=== PATIENT | male | born 1985 | race African-American/Black ===

== ENCOUNTER 2018-04-19 14:25 | Inpatient (IN) | payer OTHER ==
[2018-04-19 16:11] LABS: ADD MAN DIFF? NO
[2018-04-19 16:16] LABS: BASOPHIL # 0.1 10^3/ul (0.0-0.1); BASOPHILS % 0.6 % (0.0-2.0); EOSINOPHILS % 0.1 % (0.0-7.0); HEMATOCRIT 34.6 % (42.0-52.0); HEMOGLOBIN 12.1 g/dl (14.0-18.0); LYMPHOCYTES % 38.3 % (15.0-51.0); MEAN CORPUSCULAR VOLUME 94.3 fl (82.0-101.0); MEAN PLATELET VOLUME 11.4 fl (7.4-10.4); MONOCYTE # 0.7 10^3/ul (0.3-0.9); MONOCYTES % 9.1 % (0.0-11.0); NEUTROPHILS % 51.1 % (39.0-77.0); NUCLEATED RED BLOOD CELLS% 0.3 /100WBC (0.0-0.0); PLATELET COUNT 210 10^3/UL (140-415); POSITIVE DIFF @See below; RED BLOOD COUNT 3.67 10^6/ul (4.70-6.10); RED CELL DISTRIBUTION WIDTH 12.6 % (11.5-14.5)
[2018-04-19 16:16] LABS: WHITE BLOOD COUNT 7.8 10^3/ul (4.8-10.8)
[2018-04-19 16:33] LABS: ADD UMIC YES; UR AMORPHOUS CRYSTAL MANY /HPF (NONE SEEN); UR ASCORBIC ACID NEGATIVE (NEGATIVE); UR BACTERIA FEW /HPF (NONE SEEN); UR BILIRUBIN (Dip) NEGATIVE (NEGATIVE); UR BLOOD (Dip) 3+ mg/dL (NEGATIVE); UR CLARITY CLOUDY (CLEAR); UR COLOR RED (YELLOW); UR GLUCOSE (Dip) NEGATIVE (NEGATIVE); UR GRANULAR CAST FEW /HPF (NONE SEEN); UR KETONES (Dip) NEGATIVE (NEGATIVE); UR LEUKOCYTE ESTERASE (Dip) NEGATIVE Leu/ul (NEGATIVE); UR MUCUS FEW /HPF (NONE SEEN); UR NITRITE (Dip) NEGATIVE (NEGATIVE); UR RBC 4 /HPF (0-5); UR SPECIFIC GRAVITY (Dip) 1.028 (1.003-1.030); UR TOTAL PROTEIN (Dip) 2+ mg/dl (NEGATIVE); UR UROBILINOGEN (Dip) NEGATIVE (NEGATIVE); UR WBC 62 /HPF (0-5)
[2018-04-19] MEDS: morphine 4 MG/ML VIAL IV ×2 (16:33→17:30)
[2018-04-19] MEDS: SODIUM CHLORIDE 0.9% 1L BAG IV* (16:33)
[2018-04-19] MEDS: ONDANSETRON 4 MG INJ IV ×3 (16:33→20:31)
[2018-04-19] MEDS: ACETAMINOPHEN 500 MG TAB PO (16:34)
[2018-04-19 16:37] LABS: ALANINE AMINOTRANSFERASE 659 IU/L (13-69); ALBUMIN 5.1 g/dl (3.3-4.9); ALBUMIN/GLOBULIN RATIO 1.18; ALKALINE PHOSPHATASE 86 IU/L (42-121); AMYLASE 172 U/L (11-123); ANION GAP 14 (5-13); BLOOD UREA NITROGEN 42 mg/dl (7-20); CALCIUM 9.7 mg/dl (8.4-10.2); CARBON DIOXIDE 22 mmol/L (21-31); CHLORIDE 100 mmol/L (97-110); CREATININE 4.96 mg/dl (0.61-1.24); Estimated GFR 17 mL/min (>60); GLUCOSE 111 mg/dl (70-220); LIPASE 322 U/L (23-300); POTASSIUM 3.8 mmol/L (3.5-5.1); SODIUM 136 mmol/L (135-144); TOTAL PROTEIN 9.4 g/dl (6.1-8.1)
[2018-04-19 16:47] LABS: ASPARTATE AMINO TRANSFERASE 1090 IU/L (15-46)
[2018-04-19 16:48] LABS: BILIRUBIN,TOTAL 2.9 mg/dl (0.2-1.3)
[2018-04-19 16:49] LABS: TROPONIN-I 0.057 ng/ml (0.000-0.120)
[2018-04-19 16:50] LABS: CK-MB 4.05 ng/ml (0.0-2.4)
[2018-04-19 17:07] LABS: INR 1.01; PROTIME 13.4 Sec (11.9-14.9)
[2018-04-19 17:08] LABS: PARTIAL THROMBOPLASTIN TIME 34.4 Sec (23.0-35.0)
[2018-04-19 17:29] LABS: CREATINE KINASE 8480 IU/L (23-200)
[2018-04-19 17:39] LABS: ETHANOL < 10.0 mg/dl (0-0)
[2018-04-19 17:54] LABS: SALICYLATE < 1.0 mg/dl (5.0-30.0)
[2018-04-19 17:54] LABS: ACETAMINOPHEN < 10.0 ug/ml (10.0-30.0)
[2018-04-19 18:13] LABS: AMPHETAMINE/METHAMPHETAMINE NEGATIVE (NEGATIVE); BARBITURATES NEGATIVE (NEGATIVE); BENZODIAZEPINES NEGATIVE (NEGATIVE); CANNABINOIDS NEGATIVE (NEGATIVE); COCAINE NEGATIVE (NEGATIVE); OPIATES NEGATIVE (NEGATIVE)
[2018-04-19] MEDS: CEFTRIAXONE 1 GM/50 ML (PMX) 50 ML IVPB (18:15)
[2018-04-19 18:32] LABS: ANISOCYTOSIS 1+ (0-0); BAND NEUTROPHILS #M 0.2 10^3/ul (0.0-0.6); BAND NEUTROPHILS % (M) 3 % (0-4); BURR CELLS 2+ (0-0); ERYTHROBLAST% (NRBC) (M) 1 % (0-0); GIANT THROMBO% (M) 3 % (0-0); LYMPHOCYTES #M 1.7 10^3/ul (0.8-2.9); LYMPHOCYTES % (M) 23 % (15-51); MONOCYTE #M 0.5 10^3/ul (0.3-0.9); MONOCYTES % (M) 7 % (0-11); OVALOCYTES 1+ (0-0); PLASMAC%(M) 1 % (0); PLATELET ESTIMATE NORMAL; POIKILOCYTOSIS 2+ (0-0); REACTIVE LYMPHOCYTES #M 1.2 10^3/ul (0.0-0.0); REACTIVE LYMPHOCYTES% (M) 16 % (0-0); SEG NEUT #M 3.9 10^3/ul (1.6-7.5); SEGMENTED NEUTROPHILS (M) % 50 % (39-77); SMUDGE%M 11 % (0-0)
[2018-04-19] MEDS ORDERED: NACL 0.9% 3 ML SYG IV (19:30)
[2018-04-19] MEDS: SOD CHLORIDE 0.9% 1,000 ML IV (20:30)
[2018-04-19] MEDS: HYDROmorphONE 1 MG/ML SYG IV (20:30)
[2018-04-19] MEDS: DIPHENHYDRAMINE 50 MG CAP PO (22:28)
[2018-04-20] MEDS: ACETAMINOPHEN 325 MG TAB PO ×5 (00:52→23:10)
[2018-04-20] MEDS: SOD CHLORIDE 0.9% 1,000 ML IV ×2 (00:52→05:03)
[2018-04-20] MEDS: HYDROCODONE/APAP (5/325) TAB PO ×3 (00:56→22:11)
[2018-04-20 03:54] LABS: LACTIC ACID 0.9 mmol/L (0.5-2.0)
[2018-04-20 03:57] LABS: HEMOGLOBIN A1C 4.5 % (0-5.9)
[2018-04-20 04:36] LABS: ALANINE AMINOTRANSFERASE 502 IU/L (13-69); ALBUMIN 3.6 g/dl (3.3-4.9); ALBUMIN/GLOBULIN RATIO 1.12; ALKALINE PHOSPHATASE 55 IU/L (42-121); ANION GAP 13 (5-13); BILIRUBIN,INDIRECT 0.8 mg/dl (0-1.1); BILIRUBIN,TOTAL 2.5 mg/dl (0.2-1.3); BLOOD UREA NITROGEN 50 mg/dl (7-20); CALCIUM 8.3 mg/dl (8.4-10.2); CARBON DIOXIDE 17 mmol/L (21-31); CHLORIDE 112 mmol/L (97-110); CREATININE 6.87 mg/dl (0.61-1.24); Estimated GFR 11 mL/min (>60); GLUCOSE 118 mg/dl (70-220); MAGNESIUM 1.6 mg/dl (1.7-2.5); PHOSPHORUS 4.1 mg/dl (2.5-4.9); POTASSIUM 4.3 mmol/L (3.5-5.1); SODIUM 142 mmol/L (135-144); TOTAL PROTEIN 6.8 g/dl (6.1-8.1)
[2018-04-20 04:56] LABS: ASPARTATE AMINO TRANSFERASE 779 IU/L (15-46)
[2018-04-20 04:56] LABS: CREATINE KINASE 6196 IU/L (23-200)
[2018-04-20] MEDS: DIPHENHYDRAMINE 50 MG CAP PO (05:02)
[2018-04-20 06:00] LABS: WHITE BLOOD COUNT 8.7 10^3/ul (4.8-10.8)
[2018-04-20 06:00] LABS: HEMOGLOBIN 8.9 g/dl (14.0-18.0); MEAN CORPUSCULAR HEMOGLOBIN 34.2 pg (29.0-33.0); MEAN CORPUSCULAR HGB CONC 34.2 g/dl (32.0-37.0); MEAN PLATELET VOLUME 11.2 fl (7.4-10.4); NUCLEATED RED BLOOD CELLS% 0.3 /100WBC (0.0-0.0); PLATELET COUNT 203 10^3/UL (140-415); POSITIVE DIFF @See below; RED CELL DISTRIBUTION WIDTH 13.4 % (11.5-14.5)
[2018-04-20 06:02] LABS: ADD MAN DIFF? YES
[2018-04-20 06:42] LABS: ADD UMIC YES; UR AMORPHOUS CRYSTAL MANY /HPF (NONE SEEN); UR ASCORBIC ACID NEGATIVE (NEGATIVE); UR BILIRUBIN (Dip) NEGATIVE (NEGATIVE); UR BLOOD (Dip) 3+ mg/dL (NEGATIVE); UR CLARITY CLOUDY (CLEAR); UR COLOR AMBER (YELLOW); UR GLUCOSE (Dip) NEGATIVE (NEGATIVE); UR KETONES (Dip) TRACE mg/dL (NEGATIVE); UR LEUKOCYTE ESTERASE (Dip) NEGATIVE Leu/ul (NEGATIVE); UR NITRITE (Dip) NEGATIVE (NEGATIVE); UR RBC 2 /HPF (0-5); UR SPECIFIC GRAVITY (Dip) 1.018 (1.003-1.030); UR TOTAL PROTEIN (Dip) 3+ mg/dl (NEGATIVE); UR UROBILINOGEN (Dip) NEGATIVE (NEGATIVE); UR WBC 0 /HPF (0-5)
[2018-04-20 06:44] LABS: ANISOCYTOSIS 2+ (0-0); BAND NEUTROPHILS #M 1.4 10^3/ul (0.0-0.6); BAND NEUTROPHILS % (M) 17 % (0-4); BURR CELLS 3+ (0-0); EOSINOPHILS % (M) 1 % (0-7); ERYTHROBLAST% (NRBC) (M) 1 % (0-0); GIANT THROMBO% (M) 7 % (0-0); LYMPHOCYTES #M 1.9 10^3/ul (0.8-2.9); LYMPHOCYTES % (M) 22 % (15-51); MONOCYTE #M 0.8 10^3/ul (0.3-0.9); MONOCYTES % (M) 10 % (0-11); PLATELET ESTIMATE NORMAL; POIKILOCYTOSIS 3+ (0-0); REACTIVE LYMPHOCYTES #M 1.1 10^3/ul (0.0-0.0); REACTIVE LYMPHOCYTES% (M) 13 % (0-0); SEG NEUT #M 3.3 10^3/ul (1.6-7.5); SEGMENTED NEUTROPHILS (M) % 37 % (39-77); SMUDGE%M 18 % (0-0)
[2018-04-20] MEDS: MAGNESIUM SULFATE 2 GM/50 ML 50 ML IVPB (09:45)
[2018-04-20 10:09] LABS: IRON 74 ug/dl (35-150)
[2018-04-20 10:18] LABS: % IRON SATURATION 32 % SAT (22-52); TOTAL IRON BINDING CAPACITY 230 ug/dl (241-421)
[2018-04-20] MEDS: SODIUM BICARBONATE (IV ADD) 100 MEQ in DEXTROSE 5% 900 ML IV (10:51)
[2018-04-20 11:54] LABS: ADD MAN DIFF? NO
[2018-04-20 11:57] LABS: BASOPHILS % 0.4 % (0.0-2.0); EOSINOPHILS % 0.2 % (0.0-7.0); HEMATOCRIT 24.3 % (42.0-52.0); HEMOGLOBIN 8.4 g/dl (14.0-18.0); LYMPHOCYTES # 3.9 10^3/ul (0.8-2.9); MEAN CORPUSCULAR HGB CONC 34.6 g/dl (32.0-37.0); MEAN CORPUSCULAR VOLUME 101.3 fl (82.0-101.0); MEAN PLATELET VOLUME 10.6 fl (7.4-10.4); MONOCYTES % 10.3 % (0.0-11.0); NEUTROPHIL # 4.9 10^3/ul (1.6-7.5); NEUTROPHILS % 49.1 % (39.0-77.0); NUCLEATED RED BLOOD CELLS # 0.1 10^3/ul (0.0-0.0); NUCLEATED RED BLOOD CELLS% 0.5 /100WBC (0.0-0.0); PLATELET COUNT 189 10^3/UL (140-415); POSITIVE DIFF @See below; RED CELL DISTRIBUTION WIDTH 13.6 % (11.5-14.5)
[2018-04-20 13:44] LABS: FERRITIN > 10000.0 ng/ml (17.9-464.0)
[2018-04-20] MEDS: CEFTRIAXONE 1 GM/50 ML (PMX) 50 ML IVPB (16:14)
[2018-04-20] MEDS ORDERED: VANCOMYCIN IV PER PHARMACY XX (23:00)
[2018-04-20] MEDS: SOD CHLORIDE 0.9% 500 ML IV (23:20)
[2018-04-20 23:33] LABS: LACTIC ACID 1.4 mmol/L (0.5-2.0)
[2018-04-21] MEDS: VANCOMYCIN HCL 1.5 GM in SOD CHLORIDE 0.9% 250 ML IVPB (00:04)
[2018-04-21] MEDS: SODIUM BICARBONATE (IV ADD) 100 MEQ in DEXTROSE 5% 900 ML IV ×2 (02:14→06:30)
[2018-04-21] MEDS: PIPER-TAZO 2.25 GM (PMX) 50 ML IVPB ×3 (05:44→22:39)
[2018-04-21 06:31] LABS: PHOSPHORUS 3.9 mg/dl (2.5-4.9)
[2018-04-21 07:06] LABS: ALANINE AMINOTRANSFERASE 508 IU/L (13-69); ALBUMIN 3.6 g/dl (3.3-4.9); ALBUMIN/GLOBULIN RATIO 1.02; ALKALINE PHOSPHATASE 75 IU/L (42-121); ANION GAP 14 (5-13); BILIRUBIN,INDIRECT 0.6 mg/dl (0-1.1); BILIRUBIN,TOTAL 4.1 mg/dl (0.2-1.3); BLOOD UREA NITROGEN 62 mg/dl (7-20); CALCIUM 8.4 mg/dl (8.4-10.2); CARBON DIOXIDE 18 mmol/L (21-31); CHLORIDE 106 mmol/L (97-110); CREATININE 11.18 mg/dl (0.61-1.24); Estimated GFR 6 mL/min (>60); GLUCOSE 109 mg/dl (70-220); POTASSIUM 4.7 mmol/L (3.5-5.1); SODIUM 138 mmol/L (135-144); TOTAL PROTEIN 7.1 g/dl (6.1-8.1)
[2018-04-21 07:28] LABS: ABNORMAL IP MESSAGE 1; HEMATOCRIT 25.6 % (42.0-52.0); HEMOGLOBIN 8.6 g/dl (14.0-18.0); MEAN CORPUSCULAR HEMOGLOBIN 33.1 pg (29.0-33.0); MEAN CORPUSCULAR HGB CONC 33.6 g/dl (32.0-37.0); MEAN CORPUSCULAR VOLUME 98.5 fl (82.0-101.0); MEAN PLATELET VOLUME 12.1 fl (7.4-10.4); NUCLEATED RED BLOOD CELLS% 0.4 /100WBC (0.0-0.0); PLATELET COUNT 187 10^3/UL (140-415); POSITIVE DIFF @See below; RED CELL DISTRIBUTION WIDTH 14.4 % (11.5-14.5)
[2018-04-21 07:29] LABS: ADD MAN DIFF? YES; ASPARTATE AMINO TRANSFERASE 885 IU/L (15-46)
[2018-04-21] MEDS: ACETAMINOPHEN 325 MG TAB PO ×2 (07:48→21:41)
[2018-04-21 07:57] LABS: CREATINE KINASE 7469 IU/L (23-200)
[2018-04-21] MEDS ORDERED: VANCOMYCIN IV PER PHARMACY XX (08:30)
[2018-04-21 08:49] LABS: AADO2 Arterial 410.7 mmHg (7.0-24.0); Allen Test ACCEPTAB; Arterial Blood Gas Oxygen Sat 94.9 mmHG (95.0-98.0); Arterial Fraction of Oxyhgb 89.3 % (93.0-99.0); Arterial HCO3 18.4 mmol/L (22.0-26.0); Arterial MetHb 3.9 % (0.0-1.5); Arterial pCO2 31.7 mmhg (35-45); MODE MASK - SIMPLE; Site Right Radial
[2018-04-21 08:56] LABS: ANISOCYTOSIS 2+ (0-0); BAND NEUTROPHILS #M 2.2 10^3/ul (0.0-0.6); BAND NEUTROPHILS % (M) 14 % (0-4); BURR CELLS 2+ (0-0); EOSINOPHILS % (M) 1 % (0-7); GIANT THROMBO% (M) 1 % (0-0); LYMPHOCYTES #M 3.6 10^3/ul (0.8-2.9); LYMPHOCYTES % (M) 23 % (15-51); MONOCYTE #M 0.9 10^3/ul (0.3-0.9); MONOCYTES % (M) 6 % (0-11); PLATELET ESTIMATE NORMAL; POIKILOCYTOSIS 2+ (0-0); REACTIVE LYMPHOCYTES #M 3.2 10^3/ul (0.0-0.0); REACTIVE LYMPHOCYTES% (M) 20 % (0-0); SEG NEUT #M 6.1 10^3/ul (1.6-7.5); SEGMENTED NEUTROPHILS (M) % 36 % (39-77); SMUDGE%M 4 % (0-0)
[2018-04-21] MEDS ORDERED: PIPER-TAZO 3.375 GM IV (PMX) 100 ML IVPB (10:00)
[2018-04-21] MEDS ORDERED: PIPER-TAZO 2.25 GM (PMX) 50 ML IVPB (10:00)
[2018-04-21] MEDS: ALBUMIN HUMAN 25% 100 ML IV (11:32)
[2018-04-21] MEDS: ACETAMINOPHEN 1000MG/100ML IV 100 ML IVPB (11:45)
[2018-04-21] MEDS: FUROSEMIDE 40 MG INJ IV (11:47)
[2018-04-21 12:19] LABS: ADD MAN DIFF? NO
[2018-04-21 12:32] LABS: ALANINE AMINOTRANSFERASE 482 IU/L (13-69); ALBUMIN 3.6 g/dl (3.3-4.9); ALBUMIN/GLOBULIN RATIO 1.05; ALKALINE PHOSPHATASE 64 IU/L (42-121); ANION GAP 16 (5-13); ASPARTATE AMINO TRANSFERASE 714 IU/L (15-46); BILIRUBIN,INDIRECT 0.6 mg/dl (0-1.1); BILIRUBIN,TOTAL 3.9 mg/dl (0.2-1.3); BLOOD UREA NITROGEN 67 mg/dl (7-20); CALCIUM 8.3 mg/dl (8.4-10.2); CARBON DIOXIDE 21 mmol/L (21-31); CHLORIDE 101 mmol/L (97-110); CREATININE 12.09 mg/dl (0.61-1.24); Estimated GFR 6 mL/min (>60); GLUCOSE 125 mg/dl (70-220); MAGNESIUM 1.9 mg/dl (1.7-2.5); POTASSIUM 4.5 mmol/L (3.5-5.1); SODIUM 138 mmol/L (135-144)
[2018-04-21 12:43] LABS: WHITE BLOOD COUNT 18.7 10^3/ul (4.8-10.8)
[2018-04-21 12:43] LABS: ABNORMAL IP MESSAGE 1; BASOPHILS % 0.2 % (0.0-2.0); EOSINOPHILS % 0.1 % (0.0-7.0); HEMATOCRIT 22.5 % (42.0-52.0); HEMOGLOBIN 7.9 g/dl (14.0-18.0); LYMPHOCYTES # 6.8 10^3/ul (0.8-2.9); LYMPHOCYTES % 36.2 % (15.0-51.0); MEAN CORPUSCULAR HEMOGLOBIN 33.9 pg (29.0-33.0); MEAN CORPUSCULAR HGB CONC 35.1 g/dl (32.0-37.0); MEAN CORPUSCULAR VOLUME 96.6 fl (82.0-101.0); MEAN PLATELET VOLUME 11.8 fl (7.4-10.4); MONOCYTE # 1.8 10^3/ul (0.3-0.9); MONOCYTES % 9.4 % (0.0-11.0); NEUTROPHIL # 9.5 10^3/ul (1.6-7.5); NEUTROPHILS % 51.2 % (39.0-77.0); NUCLEATED RED BLOOD CELLS # 0.1 10^3/ul (0.0-0.0); NUCLEATED RED BLOOD CELLS% 0.4 /100WBC (0.0-0.0); PLATELET COUNT 215 10^3/UL (140-415); POSITIVE DIFF @See below; RED BLOOD COUNT 2.33 10^6/ul (4.70-6.10); RED CELL DISTRIBUTION WIDTH 14.5 % (11.5-14.5)
[2018-04-21 13:16] LABS: ANISOCYTOSIS 1+ (0-0); BAND NEUTROPHILS #M 2.2 10^3/ul (0.0-0.6); BAND NEUTROPHILS % (M) 12 % (0-4); BURR CELLS 1+ (0-0); EOSINOPHILS % (M) 1 % (0-7); ERYTHROBLAST% (NRBC) (M) 1 % (0-0); LYMPHOCYTES #M 4.8 10^3/ul (0.8-2.9); LYMPHOCYTES % (M) 26 % (15-51); MONOCYTE #M 1.1 10^3/ul (0.3-0.9); MONOCYTES % (M) 6 % (0-11); PLATELET ESTIMATE NORMAL; POIKILOCYTOSIS 1+ (0-0); POLYCHROMASIA 1+ (0-0); REACTIVE LYMPHOCYTES #M 2.4 10^3/ul (0.0-0.0); REACTIVE LYMPHOCYTES% (M) 13 % (0-0); SEG NEUT #M 8.3 10^3/ul (1.6-7.5); SEGMENTED NEUTROPHILS (M) % 42 % (39-77); SMUDGE%M 29 % (0-0)
[2018-04-21 13:27] LABS: CREATINE KINASE 6943 IU/L (23-200)
[2018-04-21] MEDS ORDERED: HEPARIN 1000 UNITS/ML 10 ML INJ (13:31)
[2018-04-21] MEDS: SODIUM BICARBONATE (IV ADD) 100 MEQ in DEXTROSE 5% 1,000 ML IV (14:16)
[2018-04-21] MEDS ORDERED: ALBUMIN HUMAN 25% 100 ML IV (14:30)
[2018-04-21] MEDS ORDERED: SODIUM CHLORIDE 0.9% 1L BAG IV (14:30)
[2018-04-21 14:50] LABS: Allen Test M; Arterial Base Excess -6.3 mmol/L (-3.0-3); Arterial Blood Gas Oxygen Sat 83.3 mmHG (95.0-98.0); Arterial COHb 1.5 % (0.0-3.0); Arterial Fraction of Oxyhgb 78.8 % (93.0-99.0); Arterial HCO3 18.7 mmol/L (22.0-26.0); Arterial MetHb 3.9 % (0.0-1.5); Arterial pCO2 34.9 mmhg (35-45); MODE MASK - NRB; Site Right Radial
[2018-04-21] MEDS ORDERED: PROPOFOL 0 ML (16:31)
[2018-04-21] MEDS ORDERED: PROPOFOL 100 ML (16:35)
[2018-04-21 18:24] LABS: Allen Test ACCEPTAB; Arterial Base Excess -4.5 mmol/L (-3.0-3); Arterial Blood Gas Oxygen Sat 97.4 mmHG (95.0-98.0); Arterial COHb 1.9 % (0.0-3.0); Arterial MetHb 4.7 % (0.0-1.5); Arterial pCO2 34.2 mmhg (35-45); Blood Gas IEPAP 15/5; Blood Gas PS 10; MODE MASK - BIPAP; Site Right Radial
[2018-04-21] MEDS: HYDROCODONE/APAP (5/325) TAB PO (21:39)
[2018-04-21] MEDS: HEPARIN 5,000 UNIT/1 ML VIAL SC (21:44)
[2018-04-22] MEDS: traZODone 50 MG TAB PO (01:37)
[2018-04-22 05:35] LABS: HAAIG REFLEX REFLEX FILED
[2018-04-22] MEDS: SODIUM BICARBONATE (IV ADD) 100 MEQ in DEXTROSE 5% 1,000 ML IV (05:43)
[2018-04-22] MEDS: PANTOPRAZOLE 40 MG INJ IV (05:43)
[2018-04-22] MEDS: PIPER-TAZO 2.25 GM (PMX) 50 ML IVPB (05:43)
[2018-04-22 06:01] LABS: ABNORMAL IP MESSAGE 1; HEMATOCRIT 18.7 % (42.0-52.0); MEAN CORPUSCULAR HEMOGLOBIN 36.1 pg (29.0-33.0); MEAN CORPUSCULAR HGB CONC 36.9 g/dl (32.0-37.0); MEAN CORPUSCULAR VOLUME 97.9 fl (82.0-101.0); MEAN PLATELET VOLUME 11.9 fl (7.4-10.4); NUCLEATED RED BLOOD CELLS% 0.7 /100WBC (0.0-0.0); PLATELET COUNT 233 10^3/UL (140-415); POSITIVE DIFF @See below; RED BLOOD COUNT 1.91 10^6/ul (4.70-6.10); RED CELL DISTRIBUTION WIDTH 15.2 % (11.5-14.5)
[2018-04-22 06:05] LABS: ADD MAN DIFF? YES
[2018-04-22 06:06] LABS: HEMOGLOBIN 6.9 g/dl (14.0-18.0)
[2018-04-22 06:17] LABS: ALANINE AMINOTRANSFERASE 641 IU/L (13-69); ALBUMIN 3.6 g/dl (3.3-4.9); ALBUMIN/GLOBULIN RATIO 1.02; ALKALINE PHOSPHATASE 68 IU/L (42-121); ANION GAP 14 (5-13); BILIRUBIN,INDIRECT 0.8 mg/dl (0-1.1); BILIRUBIN,TOTAL 4.4 mg/dl (0.2-1.3); BLOOD UREA NITROGEN 60 mg/dl (7-20); CALCIUM 8.3 mg/dl (8.4-10.2); CARBON DIOXIDE 27 mmol/L (21-31); CHLORIDE 98 mmol/L (97-110); CREATININE 11.34 mg/dl (0.61-1.24); Estimated GFR 6 mL/min (>60); GLUCOSE 128 mg/dl (70-220); POTASSIUM 4.4 mmol/L (3.5-5.1); SODIUM 139 mmol/L (135-144); TOTAL PROTEIN 7.1 g/dl (6.1-8.1)
[2018-04-22 06:33] LABS: ASPARTATE AMINO TRANSFERASE 1229 IU/L (15-46)
[2018-04-22 07:07] LABS: CREATINE KINASE 5993 IU/L (23-200)
[2018-04-22 07:20] LABS: HEPATITIS B SURFACE ANTIGEN NEGATIVE (NEGATIVE)
[2018-04-22 07:38] LABS: HEPATITIS B CORE ANTIBODY NEGATIVE (NEGATIVE); HEPATITIS C VIRAL ANTIBODY NEGATIVE (NEGATIVE)
[2018-04-22 07:47] LABS: HIV 1&2 ANTIBODY REACTIVE (NEGATIVE)
[2018-04-22] MEDS: ACETAMINOPHEN 650 MG SUPP PR ×2 (08:50→23:42)
[2018-04-22] MEDS ORDERED: ENOXAPARIN 40 MG/0.4 ML SYG SC (09:00)
[2018-04-22] MEDS: HEPARIN 5,000 UNIT/1 ML VIAL SC ×2 (09:02→21:58)
[2018-04-22 09:08] LABS: ANISOCYTOSIS 3+ (0-0); BAND NEUTROPHILS #M 2.7 10^3/ul (0.0-0.6); BAND NEUTROPHILS % (M) 12 % (0-4); BURR CELLS 3+ (0-0); ERYTHROBLAST% (NRBC) (M) 3 % (0-0); LYMPHOCYTES #M 4.1 10^3/ul (0.8-2.9); LYMPHOCYTES % (M) 18 % (15-51); MONOCYTE #M 3.4 10^3/ul (0.3-0.9); MONOCYTES % (M) 15 % (0-11); PLATELET ESTIMATE NORMAL; POIKILOCYTOSIS 3+ (0-0); REACTIVE LYMPHOCYTES #M 2.5 10^3/ul (0.0-0.0); REACTIVE LYMPHOCYTES% (M) 11 % (0-0); SEG NEUT #M 10.7 10^3/ul (1.6-7.5); SEGMENTED NEUTROPHILS (M) % 44 % (39-77); SMUDGE%M 43 % (0-0)
[2018-04-22] MEDS: METHYLPREDNISOLONE 125 MG INJ IV ×2 (12:49→20:01)
[2018-04-22] MEDS: LORAZEPAM 2 MG INJ IV ×2 (13:20→23:33)
[2018-04-22] MEDS: PRIMAQUINE 15 MG TAB PO ×2 (13:20→14:00)
[2018-04-22] MEDS: CLINDAMYCIN 600 MG/D5W (PMX) 50 ML IVPB ×2 (14:37→21:57)
[2018-04-22] MEDS: ACETAMINOPHEN 1000MG/100ML IV 100 ML IVPB (14:46)
[2018-04-22] MEDS: CEFEPIME 1GM/50 ML (PMX) 50 ML IVPB (14:48)
[2018-04-22] MEDS: morphine 4 MG/ML VIAL IV ×2 (14:56→20:14)
[2018-04-22 15:51] LABS: OCCULT BLOOD STOOL NEGATIVE (NEGATIVE)
[2018-04-22] MEDS: HEPARIN 1000 UNITS/ML 10 ML INJ CATHETER (19:40)
[2018-04-22] MEDS: LEVOFLOXACIN 250MG/D5W (PMX) 50 ML IVPB (20:01)
[2018-04-23] MEDS: METHYLPREDNISOLONE 125 MG INJ IV ×5 (00:37→23:06)
[2018-04-23] MEDS: CLINDAMYCIN 600 MG/D5W (PMX) 50 ML IVPB (05:29)
[2018-04-23] MEDS: PANTOPRAZOLE 40 MG INJ IV (05:29)
[2018-04-23 05:43] LABS: ALANINE AMINOTRANSFERASE 718 IU/L (13-69); ALBUMIN/GLOBULIN RATIO 0.93; ALKALINE PHOSPHATASE 77 IU/L (42-121); ANION GAP 17 (5-13); BILIRUBIN,INDIRECT 1.3 mg/dl (0-1.1); BILIRUBIN,TOTAL 4.4 mg/dl (0.2-1.3); BLOOD UREA NITROGEN 64 mg/dl (7-20); CALCIUM 8.7 mg/dl (8.4-10.2); CARBON DIOXIDE 28 mmol/L (21-31); CHLORIDE 96 mmol/L (97-110); CREATININE 10.67 mg/dl (0.61-1.24); Estimated GFR 7 mL/min (>60); GLUCOSE 157 mg/dl (70-220); POTASSIUM 5.1 mmol/L (3.5-5.1); SODIUM 141 mmol/L (135-144); TOTAL PROTEIN 8.3 g/dl (6.1-8.1)
[2018-04-23 05:45] LABS: PHOSPHORUS 5.1 mg/dl (2.5-4.9)
[2018-04-23 05:45] LABS: MAGNESIUM 2.2 mg/dl (1.7-2.5)
[2018-04-23 05:50] LABS: ASPARTATE AMINO TRANSFERASE 1148 IU/L (15-46)
[2018-04-23] MEDS: ACETAMINOPHEN 650 MG SUPP PR ×2 (07:30→11:50)
[2018-04-23 08:09] LABS: WHITE BLOOD COUNT 22.5 10^3/ul (4.8-10.8)
[2018-04-23 08:09] LABS: ABNORMAL IP MESSAGE 1; HEMATOCRIT 16.8 % (42.0-52.0); MEAN CORPUSCULAR HEMOGLOBIN 36.1 pg (29.0-33.0); MEAN CORPUSCULAR HGB CONC 35.7 g/dl (32.0-37.0); MEAN CORPUSCULAR VOLUME 101.2 fl (82.0-101.0); MEAN PLATELET VOLUME 11.5 fl (7.4-10.4); NUCLEATED RED BLOOD CELLS% 2.4 /100WBC (0.0-0.0); PLATELET COUNT 210 10^3/UL (140-415); POSITIVE DIFF @See below; RED BLOOD COUNT 1.66 10^6/ul (4.70-6.10); RED CELL DISTRIBUTION WIDTH 17.1 % (11.5-14.5)
[2018-04-23 08:18] LABS: ADD MAN DIFF? YES
[2018-04-23] MEDS: HEPARIN 5,000 UNIT/1 ML VIAL SC ×2 (09:27→21:16)
[2018-04-23] MEDS: SOD CHLORIDE 0.9% 250 ML IV* ×2 (09:27→10:31)
[2018-04-23] MEDS: PRIMAQUINE 15 MG TAB PO ×2 (09:27→09:38)
[2018-04-23 10:43] LABS: ANISOCYTOSIS 3+ (0-0); BAND NEUTROPHILS #M 0.9 10^3/ul (0.0-0.6); BAND NEUTROPHILS % (M) 4 % (0-4); BURR CELLS 1+ (0-0); GIANT THROMBO% (M) 1 % (0-0); LYMPHOCYTES #M 2.4 10^3/ul (0.8-2.9); LYMPHOCYTES % (M) 11 % (15-51); METAMYELOCYTES #M 0.2 10^3/ul (0.0-0.0); METAMYELOCYTES %M 1 % (0-0); MONOCYTE #M 1.3 10^3/ul (0.3-0.9); MONOCYTES % (M) 6 % (0-11); MYELOCYTES #M 0.4 10^3/ul (0.0-0.0); MYELOCYTES % (M) 2 % (0-0); PLATELET ESTIMATE NORMAL; POIKILOCYTOSIS 3+ (0-0); POLYCHROMASIA 3+ (0-0); REACTIVE LYMPHOCYTES #M 2.4 10^3/ul (0.0-0.0); REACTIVE LYMPHOCYTES% (M) 11 % (0-0); SEG NEUT #M 14.8 10^3/ul (1.6-7.5); SEGMENTED NEUTROPHILS (M) % 65 % (39-77); SMUDGE%M 28 % (0-0); SPHEROCYTES 1+ (0-0); TARGET CELLS 1+ (0-0)
[2018-04-23] MEDS: INFLUENZA VIRUS VACCINE 0.5 ML (DISPENSING) IM* (11:45)
[2018-04-23] MEDS: HEPARIN 1000 UNITS/ML 10 ML INJ CATHETER (12:15)
[2018-04-23 12:32] LABS: AADO2 Arterial 349.9 mmHg (7.0-24.0); Allen Test ACCEPTAB; Arterial Base Excess 2.1 mmol/L (-3.0-3); Arterial Blood Gas Oxygen Sat 99.6 mmHG (95.0-98.0); Arterial COHb 2.5 % (0.0-3.0); Arterial Fraction of Oxyhgb 92.2 % (93.0-99.0); Arterial HCO3 26.2 mmol/L (22.0-26.0); Arterial MetHb 4.9 % (0.0-1.5); Arterial pCO2 38.8 mmhg (35-45); Blood Gas IEPAP 15/5; Blood Gas PS 10; MODE MASK - BIPAP; Site Right Radial
[2018-04-23] MEDS: TRIMETHOPRIM/SULFAMETHOXAZOLE 25 ML in DEXTROSE 5% 500 ML IVPB (13:02)
[2018-04-23] MEDS: CEFEPIME 1GM/50 ML (PMX) 50 ML IVPB (15:26)
[2018-04-23] MEDS: LORAZEPAM 2 MG INJ IV (23:07)
[2018-04-24 04:58] LABS: ADD MAN DIFF? NO
[2018-04-24 05:08] LABS: ABNORMAL IP MESSAGE 1; HEMATOCRIT 14.5 % (42.0-52.0); MEAN CORPUSCULAR VOLUME 98.6 fl (82.0-101.0); MEAN PLATELET VOLUME 12.1 fl (7.4-10.4); NUCLEATED RED BLOOD CELLS% 7.5 /100WBC (0.0-0.0); PLATELET COUNT 374 10^3/UL (140-415); POSITIVE DIFF @See below; RED BLOOD COUNT 1.47 10^6/ul (4.70-6.10); RED CELL DISTRIBUTION WIDTH 21.5 % (11.5-14.5)
[2018-04-24 05:08] LABS: WHITE BLOOD COUNT 17.9 10^3/ul (4.8-10.8)
[2018-04-24 05:30] LABS: ALANINE AMINOTRANSFERASE 507 IU/L (13-69); ALBUMIN 3.9 g/dl (3.3-4.9); ALBUMIN/GLOBULIN RATIO 0.95; ALKALINE PHOSPHATASE 85 IU/L (42-121); ANION GAP 13 (5-13); ASPARTATE AMINO TRANSFERASE 547 IU/L (15-46); BILIRUBIN,INDIRECT 1.1 mg/dl (0-1.1); BILIRUBIN,TOTAL 3.2 mg/dl (0.2-1.3); BLOOD UREA NITROGEN 85 mg/dl (7-20); CARBON DIOXIDE 27 mmol/L (21-31); CHLORIDE 99 mmol/L (97-110); CREATININE 10.04 mg/dl (0.61-1.24); Estimated GFR 7 mL/min (>60); GLUCOSE 176 mg/dl (70-220); POTASSIUM 4.6 mmol/L (3.5-5.1); SODIUM 139 mmol/L (135-144)
[2018-04-24] MEDS: PANTOPRAZOLE 40 MG INJ IV (05:31)
[2018-04-24] MEDS: METHYLPREDNISOLONE 125 MG INJ IV ×4 (05:31→23:22)
[2018-04-24 06:42] LABS: MEAN CORPUSCULAR HEMOGLOBIN 46.9 pg (29.0-33.0); MEAN CORPUSCULAR HGB CONC 47.6 g/dl (32.0-37.0)
[2018-04-24 06:45] LABS: HEMOGLOBIN 6.9 g/dl (14.0-18.0)
[2018-04-24] MEDS: HEPARIN 5,000 UNIT/1 ML VIAL SC ×2 (08:29→20:23)
[2018-04-24 09:37] LABS: CREATINE KINASE 3172 IU/L (23-200)
[2018-04-24 09:56] LABS: ANISOCYTOSIS 3+ (0-0); BAND NEUTROPHILS #M 1.2 10^3/ul (0.0-0.6); BAND NEUTROPHILS % (M) 7 % (0-4); BURR CELLS 2+ (0-0); ERYTHROBLAST% (NRBC) (M) 11 % (0-0); GIANT THROMBO% (M) 1 % (0-0); LYMPHOCYTES #M 1.4 10^3/ul (0.8-2.9); LYMPHOCYTES % (M) 8 % (15-51); MONOCYTE #M 1.7 10^3/ul (0.3-0.9); MONOCYTES % (M) 10 % (0-11); MYELOCYTES #M 0.3 10^3/ul (0.0-0.0); MYELOCYTES % (M) 2 % (0-0); OVALOCYTES 2+ (0-0); PLATELET ESTIMATE NORMAL; POIKILOCYTOSIS 3+ (0-0); POLYCHROMASIA 3+ (0-0); PROMYELOCYTES #M 0.1 10^3/ul (0-0); PROMYELOCYTES % (M) 1 % (0-0); REACTIVE LYMPHOCYTES% (M) 6 % (0-0); SEG NEUT #M 11.3 10^3/ul (1.6-7.5); SEGMENTED NEUTROPHILS (M) % 62 % (39-77); SMUDGE%M 7 % (0-0)
[2018-04-24] MEDS: ACETAMINOPHEN 650 MG SUPP PR (11:01)
[2018-04-24] MEDS: TRIMETHOPRIM/SULFAMETHOXAZOLE 25 ML in DEXTROSE 5% 500 ML IVPB (11:11)
[2018-04-24 11:19] LABS: IMMEDIATE SPIN CROSSMATCH 1 1
[2018-04-24] MEDS: CEFEPIME 1GM/50 ML (PMX) 50 ML IVPB (15:00)
[2018-04-24] MEDS: LORAZEPAM 2 MG INJ IV (19:54)
[2018-04-25] MEDS: PANTOPRAZOLE 40 MG INJ IV (06:10)
[2018-04-25] MEDS: METHYLPREDNISOLONE 125 MG INJ IV ×4 (06:11→23:18)
[2018-04-25 06:47] LABS: ALANINE AMINOTRANSFERASE 357 IU/L (13-69); ALBUMIN 3.7 g/dl (3.3-4.9); ALBUMIN/GLOBULIN RATIO 0.94; ALKALINE PHOSPHATASE 80 IU/L (42-121); ANION GAP 19 (5-13); ASPARTATE AMINO TRANSFERASE 272 IU/L (15-46); BILIRUBIN,INDIRECT 0.7 mg/dl (0-1.1); BILIRUBIN,TOTAL 2.4 mg/dl (0.2-1.3); CARBON DIOXIDE 21 mmol/L (21-31); CHLORIDE 98 mmol/L (97-110); Estimated GFR 5 mL/min (>60); GLUCOSE 218 mg/dl (70-220); POTASSIUM 4.3 mmol/L (3.5-5.1); SODIUM 138 mmol/L (135-144); TOTAL PROTEIN 7.6 g/dl (6.1-8.1)
[2018-04-25 06:52] LABS: PHOSPHORUS 5.2 mg/dl (2.5-4.9)
[2018-04-25 06:52] LABS: MAGNESIUM 3.1 mg/dl (1.7-2.5)
[2018-04-25 06:58] LABS: BLOOD UREA NITROGEN 129 mg/dl (7-20)
[2018-04-25 06:59] LABS: ABNORMAL IP MESSAGE 1; MEAN CORPUSCULAR HEMOGLOBIN 31.8 pg (29.0-33.0); MEAN CORPUSCULAR HGB CONC 34.7 g/dl (32.0-37.0); MEAN CORPUSCULAR VOLUME 91.5 fl (82.0-101.0); PLATELET COUNT 323 10^3/UL (140-415); POSITIVE DIFF @See below; RED BLOOD COUNT 2.11 10^6/ul (4.70-6.10); RED CELL DISTRIBUTION WIDTH 16.7 % (11.5-14.5)
[2018-04-25 06:59] LABS: WHITE BLOOD COUNT 16.1 10^3/ul (4.8-10.8)
[2018-04-25 07:04] LABS: HEMOGLOBIN 6.7 g/dl (14.0-18.0)
[2018-04-25 07:05] LABS: ADD MAN DIFF? YES
[2018-04-25 07:13] LABS: HEMATOCRIT 19.3 % (42.0-52.0)
[2018-04-25 07:28] LABS: CREATINE KINASE 2778 IU/L (23-200)
[2018-04-25] MEDS: SOD CHLORIDE 0.9% 250 ML IV* (09:34)
[2018-04-25 10:47] LABS: ANISOCYTOSIS 3+ (0-0); BAND NEUTROPHILS #M 0.6 10^3/ul (0.0-0.6); BAND NEUTROPHILS % (M) 4 % (0-4); BURR CELLS 3+ (0-0); ERYTHROBLAST% (NRBC) (M) 8 % (0-0); GIANT THROMBO% (M) 5 % (0-0); LYMPHOCYTES #M 3.5 10^3/ul (0.8-2.9); LYMPHOCYTES % (M) 22 % (15-51); MICROCYTOSIS 2+ (0-0); MONOCYTE #M 0.8 10^3/ul (0.3-0.9); MONOCYTES % (M) 5 % (0-11); MYELOCYTES #M 0.3 10^3/ul (0.0-0.0); MYELOCYTES % (M) 2 % (0-0); PLATELET ESTIMATE NORMAL; POIKILOCYTOSIS 3+ (0-0); POLYCHROMASIA 3+ (0-0); PROMYELOCYTES #M 0.1 10^3/ul (0-0); PROMYELOCYTES % (M) 1 % (0-0); REACTIVE LYMPHOCYTES #M 0.6 10^3/ul (0.0-0.0); REACTIVE LYMPHOCYTES% (M) 4 % (0-0); SEG NEUT #M 10.4 10^3/ul (1.6-7.5); SEGMENTED NEUTROPHILS (M) % 64 % (39-77); SMUDGE%M 12 % (0-0); TARGET CELLS 1+ (0-0)
[2018-04-25] MEDS ORDERED: morphine 4 MG/ML VIAL IV (11:00)
[2018-04-25] MEDS: TRIMETHOPRIM/SULFAMETHOXAZOLE 25 ML in DEXTROSE 5% 500 ML IVPB (13:11)
[2018-04-25] MEDS: CEFEPIME 1GM/50 ML (PMX) 50 ML IVPB (16:59)
[2018-04-25] MEDS: LORAZEPAM 2 MG INJ IV (21:52)
[2018-04-26] MEDS: PANTOPRAZOLE 40 MG INJ IV (06:08)
[2018-04-26] MEDS: METHYLPREDNISOLONE 125 MG INJ IV (06:09)
[2018-04-26 06:15] LABS: ADD MAN DIFF? NO
[2018-04-26 06:37] LABS: ALANINE AMINOTRANSFERASE 301 IU/L (13-69); ALBUMIN 3.6 g/dl (3.3-4.9); ALKALINE PHOSPHATASE 69 IU/L (42-121); ASPARTATE AMINO TRANSFERASE 160 IU/L (15-46); BILIRUBIN,INDIRECT 0.8 mg/dl (0-1.1); BILIRUBIN,TOTAL 1.9 mg/dl (0.2-1.3); TOTAL PROTEIN 7.3 g/dl (6.1-8.1)
[2018-04-26 06:40] LABS: ANION GAP 17 (5-13); BLOOD UREA NITROGEN 115 mg/dl (7-20); CALCIUM 9.1 mg/dl (8.4-10.2); CARBON DIOXIDE 24 mmol/L (21-31); CHLORIDE 97 mmol/L (97-110); CREATININE 11.81 mg/dl (0.61-1.24); Estimated GFR 6 mL/min (>60); GLUCOSE 205 mg/dl (70-220); POTASSIUM 4.3 mmol/L (3.5-5.1); SODIUM 138 mmol/L (135-144)
[2018-04-26 06:45] LABS: CREATINE KINASE 2342 IU/L (23-200)
[2018-04-26 07:26] LABS: WHITE BLOOD COUNT 12.9 10^3/ul (4.8-10.8)
[2018-04-26 07:26] LABS: BASOPHILS % 0.2 % (0.0-2.0); HEMATOCRIT 20.8 % (42.0-52.0); HEMOGLOBIN 7.1 g/dl (14.0-18.0); LYMPHOCYTES # 2.9 10^3/ul (0.8-2.9); LYMPHOCYTES % 22.9 % (15.0-51.0); MEAN CORPUSCULAR HEMOGLOBIN 30.6 pg (29.0-33.0); MEAN CORPUSCULAR HGB CONC 34.1 g/dl (32.0-37.0); MEAN CORPUSCULAR VOLUME 89.7 fl (82.0-101.0); MEAN PLATELET VOLUME 11.9 fl (7.4-10.4); MONOCYTE # 0.7 10^3/ul (0.3-0.9); MONOCYTES % 5.1 % (0.0-11.0); NEUTROPHIL # 8.9 10^3/ul (1.6-7.5); NEUTROPHILS % 68.9 % (39.0-77.0); NUCLEATED RED BLOOD CELLS # 1.1 10^3/ul (0.0-0.0); NUCLEATED RED BLOOD CELLS% 8.2 /100WBC (0.0-0.0); PLATELET COUNT 326 10^3/UL (140-415); POSITIVE DIFF @See below; RED BLOOD COUNT 2.32 10^6/ul (4.70-6.10); RED CELL DISTRIBUTION WIDTH 18.8 % (11.5-14.5)
[2018-04-26] MEDS: HYDROCODONE/APAP (5/325) TAB PO (09:57)
[2018-04-26 10:02] LABS: ANISOCYTOSIS 3+ (0-0); BAND NEUTROPHILS #M 0.7 10^3/ul (0.0-0.6); BAND NEUTROPHILS % (M) 6 % (0-4); BASOPHIL #M 0.1 10^3/ul (0.0-0.0); BASOPHILS % (M) 1 % (0-2); BURR CELLS 1+ (0-0); ERYTHROBLAST% (NRBC) (M) 2 % (0-0); GIANT THROMBO% (M) 1 % (0-0); LYMPHOCYTES #M 1.9 10^3/ul (0.8-2.9); LYMPHOCYTES % (M) 15 % (15-51); MONOCYTE #M 1.2 10^3/ul (0.3-0.9); MONOCYTES % (M) 10 % (0-11); MYELOCYTES #M 0.1 10^3/ul (0.0-0.0); MYELOCYTES % (M) 1 % (0-0); OVALOCYTES 1+ (0-0); PLATELET ESTIMATE NORMAL; POIKILOCYTOSIS 2+ (0-0); POLYCHROMASIA 3+ (0-0); REACTIVE LYMPHOCYTES #M 0.9 10^3/ul (0.0-0.0); REACTIVE LYMPHOCYTES% (M) 7 % (0-0); SEG NEUT #M 7.8 10^3/ul (1.6-7.5); SEGMENTED NEUTROPHILS (M) % 60 % (39-77); SMUDGE%M 12 % (0-0)
[2018-04-26] MEDS: TRIMETHOPRIM/SULFAMETHOXAZOLE 25 ML in DEXTROSE 5% 500 ML IVPB (12:27)
[2018-04-26] MEDS: METHYLPREDNISOLONE 40 MG INJ IV ×3 (12:27→23:21)
[2018-04-26] MEDS: CEFEPIME 1GM/50 ML (PMX) 50 ML IVPB (15:09)
[2018-04-26] MEDS: ONDANSETRON 4 MG INJ IV (23:37)
[2018-04-27 00:58] LABS: COLLECTION PERIOD 24 hrs
[2018-04-27 02:54] LABS: COLLECTION PERIOD 24 hrs; CREATININE,URINE RANDOM 34.56 mg/dl (20-370); SCRET 11.81 mg/dl (0.61-1.24); VOLUME 20 ml/24hrs
[2018-04-27 04:29] LABS: VOLUME 20 mls
[2018-04-27] MEDS: PANTOPRAZOLE 40 MG INJ IV (05:46)
[2018-04-27] MEDS: METHYLPREDNISOLONE 40 MG INJ IV ×2 (05:46→11:27)
[2018-04-27 06:37] LABS: CREATINE KINASE 1243 IU/L (23-200)
[2018-04-27 06:38] LABS: PHOSPHORUS 8.9 mg/dl (2.5-4.9)
[2018-04-27] MEDS: HEPARIN 1000 UNITS/ML 10 ML INJ CATHETER (11:08)
[2018-04-27] MEDS: TRIMETHOPRIM/SULFAMETHOXAZOLE 25 ML in DEXTROSE 5% 500 ML IVPB (11:27)
[2018-04-27 11:36] LABS: LYMPHOCYTE - % CD4 (HELPER) 10 % (30-61); LYMPHOCYTE - % CD4 (HELPER) 9 % (30-61); LYMPHOCYTE - %CD8 (SUPPRESSOR) 57 % (12-42); LYMPHOCYTE - %CD8 (SUPPRESSOR) 63 % (12-42); LYMPHOCYTE - ABSOLUTE 2536 cells/uL (850-3900); LYMPHOCYTE - ABSOLUTE 3348 cells/uL (850-3900); LYMPHOCYTE - ABSOLUTE CD4 223 cells/uL (490-1740); LYMPHOCYTE - ABSOLUTE CD4 344 cells/uL (490-1740); LYMPHOCYTE - ABSOLUTE CD8 1594 cells/uL (180-1170); LYMPHOCYTE - ABSOLUTE CD8 1910 cells/uL (180-1170); LYMPHOCYTE - CD4/CD8 RATIO 0.14 (0.86-5.00); LYMPHOCYTE - CD4/CD8 RATIO 0.18 (0.86-5.00)
[2018-04-27] MEDS: DIPHENHYDRAMINE 50 MG CAP PO (13:16)
[2018-04-27] MEDS: CEFEPIME 1GM/50 ML (PMX) 50 ML IVPB (15:13)
[2018-04-27 15:16] LABS: ADD MAN DIFF? NO
[2018-04-27 15:52] LABS: ANION GAP 18 (5-13); BLOOD UREA NITROGEN 90 mg/dl (7-20); CALCIUM 8.6 mg/dl (8.4-10.2); CARBON DIOXIDE 23 mmol/L (21-31); CHLORIDE 93 mmol/L (97-110); CREATININE 10.15 mg/dl (0.61-1.24); Estimated GFR 7 mL/min (>60); GLUCOSE 223 mg/dl (70-220); POTASSIUM 3.9 mmol/L (3.5-5.1); SODIUM 134 mmol/L (135-144)
[2018-04-27] MEDS: ONDANSETRON 4 MG INJ IV (16:12)
[2018-04-27 16:15] LABS: WHITE BLOOD COUNT 10.7 10^3/ul (4.8-10.8)
[2018-04-27 16:15] LABS: BASOPHILS % 0.1 % (0.0-2.0); HEMATOCRIT 20.7 % (42.0-52.0); LYMPHOCYTES # 1.3 10^3/ul (0.8-2.9); LYMPHOCYTES % 12.2 % (15.0-51.0); MEAN CORPUSCULAR HEMOGLOBIN 30.4 pg (29.0-33.0); MEAN CORPUSCULAR HGB CONC 33.8 g/dl (32.0-37.0); MEAN PLATELET VOLUME 11.9 fl (7.4-10.4); MONOCYTE # 0.8 10^3/ul (0.3-0.9); MONOCYTES % 7.1 % (0.0-11.0); NEUTROPHIL # 8.4 10^3/ul (1.6-7.5); NEUTROPHILS % 78.2 % (39.0-77.0); NUCLEATED RED BLOOD CELLS # 0.3 10^3/ul (0.0-0.0); NUCLEATED RED BLOOD CELLS% 2.9 /100WBC (0.0-0.0); PLATELET COUNT 300 10^3/UL (140-415); RED CELL DISTRIBUTION WIDTH 19.3 % (11.5-14.5)
[2018-04-27] MEDS: CLINDAMYCIN 600 MG/D5W (PMX) 50 ML IVPB ×2 (17:26→23:00)
[2018-04-27] MEDS: SOD CHLORIDE 0.9% 250 ML IV* (19:00)
[2018-04-27 23:41] LABS: AHG CROSSMATCH 1 2
[2018-04-28] MEDS: ONDANSETRON 4 MG INJ IV ×2 (04:18→15:56)
[2018-04-28] MEDS: CLINDAMYCIN 600 MG/D5W (PMX) 50 ML IVPB ×3 (05:11→22:30)
[2018-04-28] MEDS: PANTOPRAZOLE 40 MG INJ IV (05:11)
[2018-04-28 05:47] LABS: ADD MAN DIFF? NO
[2018-04-28] MEDS: morphine 4 MG/ML VIAL IV ×3 (05:51→17:40)
[2018-04-28 05:53] LABS: ABNORMAL IP MESSAGE 1; HEMATOCRIT 20.7 % (42.0-52.0); HEMOGLOBIN 7.5 g/dl (14.0-18.0); LYMPHOCYTES # 1.6 10^3/ul (0.8-2.9); LYMPHOCYTES % 12.5 % (15.0-51.0); MEAN CORPUSCULAR HEMOGLOBIN 32.3 pg (29.0-33.0); MEAN CORPUSCULAR HGB CONC 36.2 g/dl (32.0-37.0); MEAN CORPUSCULAR VOLUME 89.2 fl (82.0-101.0); MEAN PLATELET VOLUME 11.8 fl (7.4-10.4); MONOCYTE # 1.6 10^3/ul (0.3-0.9); MONOCYTES % 12.5 % (0.0-11.0); NUCLEATED RED BLOOD CELLS # 0.2 10^3/ul (0.0-0.0); NUCLEATED RED BLOOD CELLS% 1.5 /100WBC (0.0-0.0); PLATELET COUNT 306 10^3/UL (140-415); POSITIVE DIFF @See below; RED BLOOD COUNT 2.32 10^6/ul (4.70-6.10); RED CELL DISTRIBUTION WIDTH 17.2 % (11.5-14.5)
[2018-04-28 05:53] LABS: WHITE BLOOD COUNT 12.5 10^3/ul (4.8-10.8)
[2018-04-28 06:11] LABS: ANION GAP 17 (5-13); BLOOD UREA NITROGEN 115 mg/dl (7-20); CALCIUM 8.2 mg/dl (8.4-10.2); CARBON DIOXIDE 23 mmol/L (21-31); CHLORIDE 94 mmol/L (97-110); CREATININE 11.83 mg/dl (0.61-1.24); Estimated GFR 6 mL/min (>60); GLUCOSE 131 mg/dl (70-220); POTASSIUM 4.1 mmol/L (3.5-5.1); SODIUM 134 mmol/L (135-144)
[2018-04-28 06:12] LABS: CREATINE KINASE 977 IU/L (23-200)
[2018-04-28] MEDS: predniSONE 20 MG TAB PO (09:00)
[2018-04-28] MEDS: HEPARIN 1000 UNITS/ML 10 ML INJ (12:44)
[2018-04-28] MEDS: CEFAZOLIN 1 GM/50 ML (PMX) 50 ML IVPB (13:15)
[2018-04-28] MEDS: DIPHENHYDRAMINE 50 MG INJ (13:40)
[2018-04-28] MEDS: FENTAnyl 50 MCG/ML VIAL (13:43)
[2018-04-28] MEDS: LIDOCAINE 2% (SDV) 5 ML INJ ×2 (13:43)
[2018-04-28 14:51] LABS: MYOGLOBIN >3000 mcg/L (< 96)
[2018-04-28] MEDS: CEFEPIME 1GM/50 ML (PMX) 50 ML IVPB (15:00)
[2018-04-29] MEDS: morphine 4 MG/ML VIAL IV (04:34)
[2018-04-29] MEDS: ONDANSETRON 4 MG INJ IV (04:34)
[2018-04-29 05:50] LABS: ADD MAN DIFF? NO
[2018-04-29 05:54] LABS: EOSINOPHILS % 0.3 % (0.0-7.0); HEMATOCRIT 20.7 % (42.0-52.0); HEMOGLOBIN 7.2 g/dl (14.0-18.0); LYMPHOCYTES % 8.5 % (15.0-51.0); MEAN CORPUSCULAR HEMOGLOBIN 31.2 pg (29.0-33.0); MEAN CORPUSCULAR HGB CONC 34.8 g/dl (32.0-37.0); MEAN CORPUSCULAR VOLUME 89.6 fl (82.0-101.0); MEAN PLATELET VOLUME 11.4 fl (7.4-10.4); MONOCYTE # 1.2 10^3/ul (0.3-0.9); MONOCYTES % 10.6 % (0.0-11.0); NEUTROPHILS % 78.4 % (39.0-77.0); NUCLEATED RED BLOOD CELLS # 0.1 10^3/ul (0.0-0.0); NUCLEATED RED BLOOD CELLS% 0.7 /100WBC (0.0-0.0); PLATELET COUNT 254 10^3/UL (140-415); RED BLOOD COUNT 2.31 10^6/ul (4.70-6.10); RED CELL DISTRIBUTION WIDTH 18.6 % (11.5-14.5)
[2018-04-29 05:54] LABS: WHITE BLOOD COUNT 11.4 10^3/ul (4.8-10.8)
[2018-04-29] MEDS: CLINDAMYCIN 600 MG/D5W (PMX) 50 ML IVPB (05:56)
[2018-04-29] MEDS: PANTOPRAZOLE 40 MG INJ IV (05:56)
[2018-04-29 06:24] LABS: AMMONIA 18 umol/l (9-30)
[2018-04-29 06:45] LABS: ANION GAP 18 (5-13); CALCIUM 7.4 mg/dl (8.4-10.2); CARBON DIOXIDE 19 mmol/L (21-31); CHLORIDE 96 mmol/L (97-110); GLUCOSE 156 mg/dl (70-220); POTASSIUM 4.2 mmol/L (3.5-5.1); SODIUM 133 mmol/L (135-144)
[2018-04-29 06:46] LABS: CREATINE KINASE 590 IU/L (23-200)
[2018-04-29 07:06] LABS: BLOOD UREA NITROGEN 130 mg/dl (7-20); CREATININE 15.62 mg/dl (0.61-1.24); Estimated GFR 4 mL/min (>60)
[2018-04-29] MEDS: NYSTATIN SUSP 5 ML CUP PO ×4 (12:11→20:21)
[2018-04-29] MEDS: HEPARIN 1000 UNITS/ML 10 ML INJ CATHETER (17:38)
[2018-04-29] MEDS ORDERED: LEVOFLOXACIN 500 MG TAB PO (18:00)
[2018-04-29] MEDS: LEVOFLOXACIN 250 MG TAB PO (18:23)
[2018-04-29] MEDS: LORAZEPAM 2 MG INJ IV (21:54)
[2018-04-30 06:08] LABS: ADD MAN DIFF? NO
[2018-04-30 06:11] LABS: BASOPHILS % 0.1 % (0.0-2.0); EOSINOPHILS # 0.1 10^3/ul (0.0-0.5); EOSINOPHILS % 0.5 % (0.0-7.0); HEMATOCRIT 20.7 % (42.0-52.0); HEMOGLOBIN 7.3 g/dl (14.0-18.0); LYMPHOCYTES # 1.1 10^3/ul (0.8-2.9); LYMPHOCYTES % 9.4 % (15.0-51.0); MEAN CORPUSCULAR HEMOGLOBIN 32.2 pg (29.0-33.0); MEAN CORPUSCULAR HGB CONC 35.3 g/dl (32.0-37.0); MEAN CORPUSCULAR VOLUME 91.2 fl (82.0-101.0); MEAN PLATELET VOLUME 11.7 fl (7.4-10.4); MONOCYTE # 1.1 10^3/ul (0.3-0.9); MONOCYTES % 9.4 % (0.0-11.0); NEUTROPHIL # 9.1 10^3/ul (1.6-7.5); PLATELET COUNT 207 10^3/UL (140-415); RED BLOOD COUNT 2.27 10^6/ul (4.70-6.10); RED CELL DISTRIBUTION WIDTH 18.8 % (11.5-14.5)
[2018-04-30 06:11] LABS: WHITE BLOOD COUNT 11.5 10^3/ul (4.8-10.8)
[2018-04-30] MEDS: PANTOPRAZOLE 40 MG INJ IV (06:15)
[2018-04-30 06:52] LABS: ANION GAP 14 (5-13); Estimated GFR 6 mL/min (>60)
[2018-04-30 07:01] LABS: BLOOD UREA NITROGEN 87 mg/dl (7-20); CALCIUM 7.9 mg/dl (8.4-10.2); CARBON DIOXIDE 25 mmol/L (21-31); CHLORIDE 95 mmol/L (97-110); CREATINE KINASE 421 IU/L (23-200); CREATININE 12.26 mg/dl (0.61-1.24); GLUCOSE 120 mg/dl (70-220); POTASSIUM 4.4 mmol/L (3.5-5.1); SODIUM 134 mmol/L (135-144)
[2018-04-30] MEDS: NYSTATIN SUSP 5 ML CUP PO ×5 (08:51→21:06)
[2018-04-30] MEDS: LORAZEPAM 2 MG INJ IV (22:06)
[2018-05-01] MEDS: PANTOPRAZOLE 40 MG INJ IV (05:40)
[2018-05-01 06:19] LABS: ADD MAN DIFF? NO
[2018-05-01 06:37] LABS: BASOPHILS % 0.1 % (0.0-2.0); EOSINOPHILS # 0.1 10^3/ul (0.0-0.5); EOSINOPHILS % 0.6 % (0.0-7.0); HEMATOCRIT 19.8 % (42.0-52.0); HEMOGLOBIN 7.1 g/dl (14.0-18.0); LYMPHOCYTES % 8.2 % (15.0-51.0); MEAN CORPUSCULAR HEMOGLOBIN 33.2 pg (29.0-33.0); MEAN CORPUSCULAR HGB CONC 35.9 g/dl (32.0-37.0); MEAN CORPUSCULAR VOLUME 92.5 fl (82.0-101.0); MEAN PLATELET VOLUME 11.5 fl (7.4-10.4); MONOCYTES % 8.5 % (0.0-11.0); NEUTROPHIL # 9.9 10^3/ul (1.6-7.5); NEUTROPHILS % 81.7 % (39.0-77.0); PLATELET COUNT 177 10^3/UL (140-415); RED BLOOD COUNT 2.14 10^6/ul (4.70-6.10); RED CELL DISTRIBUTION WIDTH 18.3 % (11.5-14.5)
[2018-05-01 06:37] LABS: WHITE BLOOD COUNT 12.1 10^3/ul (4.8-10.8)
[2018-05-01 06:51] LABS: CREATINE KINASE 341 IU/L (23-200)
[2018-05-01 06:55] LABS: ANION GAP 18 (5-13); BLOOD UREA NITROGEN 105 mg/dl (7-20); CARBON DIOXIDE 20 mmol/L (21-31); CHLORIDE 93 mmol/L (97-110); GLUCOSE 106 mg/dl (70-220); SODIUM 131 mmol/L (135-144)
[2018-05-01 07:05] LABS: POTASSIUM 4.4 mmol/L (3.5-5.1)
[2018-05-01 07:11] LABS: CREATININE 15.59 mg/dl (0.61-1.24); Estimated GFR 4 mL/min (>60)
[2018-05-01] MEDS: NYSTATIN SUSP 5 ML CUP PO ×4 (10:55→21:24)
[2018-05-01] MEDS: LEVOFLOXACIN 250 MG TAB PO (17:54)
[2018-05-01] MEDS: ACETAMINOPHEN 325 MG TAB PO (22:03)
[2018-05-02] MEDS: LORAZEPAM 2 MG INJ IV ×2 (00:15→22:02)
[2018-05-02] MEDS: PANTOPRAZOLE 40 MG INJ IV (05:25)
[2018-05-02] MEDS: SOD CHLORIDE 0.9% 250 ML IV* (05:26)
[2018-05-02 05:39] LABS: AHG CROSSMATCH 1 2
[2018-05-02 06:07] LABS: ADD MAN DIFF? NO
[2018-05-02 06:12] LABS: BASOPHILS % 0.1 % (0.0-2.0); EOSINOPHILS # 0.1 10^3/ul (0.0-0.5); EOSINOPHILS % 0.5 % (0.0-7.0); HEMATOCRIT 23.8 % (42.0-52.0); HEMOGLOBIN 8.3 g/dl (14.0-18.0); LYMPHOCYTES # 0.9 10^3/ul (0.8-2.9); LYMPHOCYTES % 7.2 % (15.0-51.0); MEAN CORPUSCULAR HEMOGLOBIN 31.6 pg (29.0-33.0); MEAN CORPUSCULAR HGB CONC 34.9 g/dl (32.0-37.0); MEAN CORPUSCULAR VOLUME 90.5 fl (82.0-101.0); MEAN PLATELET VOLUME 10.8 fl (7.4-10.4); MONOCYTE # 1.4 10^3/ul (0.3-0.9); MONOCYTES % 11.3 % (0.0-11.0); NEUTROPHIL # 9.5 10^3/ul (1.6-7.5); NEUTROPHILS % 79.9 % (39.0-77.0); PLATELET COUNT 187 10^3/UL (140-415); RED BLOOD COUNT 2.63 10^6/ul (4.70-6.10)
[2018-05-02 06:12] LABS: WHITE BLOOD COUNT 11.9 10^3/ul (4.8-10.8)
[2018-05-02 06:36] LABS: ANION GAP 17 (5-13); BLOOD UREA NITROGEN 112 mg/dl (7-20); CALCIUM 7.8 mg/dl (8.4-10.2); CARBON DIOXIDE 19 mmol/L (21-31); CHLORIDE 93 mmol/L (97-110); GLUCOSE 93 mg/dl (70-220); POTASSIUM 4.4 mmol/L (3.5-5.1); SODIUM 129 mmol/L (135-144)
[2018-05-02 06:58] LABS: CREATININE 17.77 mg/dl (0.61-1.24); Estimated GFR 4 mL/min (>60)
[2018-05-02] MEDS: NYSTATIN SUSP 5 ML CUP PO ×4 (09:23→20:13)
[2018-05-02] MEDS: HEPARIN 1000 UNITS/ML 10 ML INJ CATHETER (17:59)
[2018-05-03] MEDS: PANTOPRAZOLE 40 MG INJ IV (05:30)
[2018-05-03 06:14] LABS: ADD MAN DIFF? NO
[2018-05-03 06:16] LABS: WHITE BLOOD COUNT 10.3 10^3/ul (4.8-10.8)
[2018-05-03 06:16] LABS: EOSINOPHILS % 0.2 % (0.0-7.0); HEMATOCRIT 25.3 % (42.0-52.0); HEMOGLOBIN 8.6 g/dl (14.0-18.0); LYMPHOCYTES # 0.7 10^3/ul (0.8-2.9); LYMPHOCYTES % 7.2 % (15.0-51.0); MEAN CORPUSCULAR HEMOGLOBIN 30.7 pg (29.0-33.0); MEAN CORPUSCULAR VOLUME 90.4 fl (82.0-101.0); MEAN PLATELET VOLUME 10.9 fl (7.4-10.4); MONOCYTE # 1.4 10^3/ul (0.3-0.9); MONOCYTES % 13.1 % (0.0-11.0); NEUTROPHIL # 8.1 10^3/ul (1.6-7.5); NEUTROPHILS % 78.6 % (39.0-77.0); PLATELET COUNT 183 10^3/UL (140-415)
[2018-05-03 06:50] LABS: ANION GAP 15 (5-13); BLOOD UREA NITROGEN 71 mg/dl (7-20); CALCIUM 8.4 mg/dl (8.4-10.2); CARBON DIOXIDE 23 mmol/L (21-31); CHLORIDE 93 mmol/L (97-110); CREATININE 13.44 mg/dl (0.61-1.24); Estimated GFR 5 mL/min (>60); GLUCOSE 122 mg/dl (70-220); POTASSIUM 4.8 mmol/L (3.5-5.1); SODIUM 131 mmol/L (135-144)
[2018-05-03] MEDS: NYSTATIN SUSP 5 ML CUP PO ×4 (08:34→21:05)
[2018-05-03] MEDS: HYDROCODONE/APAP (5/325) TAB PO ×2 (15:02→21:15)
[2018-05-04] MEDS: ACETAMINOPHEN 325 MG TAB PO ×2 (02:25→16:33)
[2018-05-04 05:52] LABS: ADD MAN DIFF? NO
[2018-05-04 05:57] LABS: BASOPHILS % 0.2 % (0.0-2.0); EOSINOPHILS % 0.3 % (0.0-7.0); HEMATOCRIT 23.9 % (42.0-52.0); HEMOGLOBIN 8.6 g/dl (14.0-18.0); LYMPHOCYTES # 1.2 10^3/ul (0.8-2.9); LYMPHOCYTES % 10.1 % (15.0-51.0); MEAN CORPUSCULAR HEMOGLOBIN 31.9 pg (29.0-33.0); MEAN CORPUSCULAR VOLUME 88.5 fl (82.0-101.0); MEAN PLATELET VOLUME 10.2 fl (7.4-10.4); MONOCYTE # 1.2 10^3/ul (0.3-0.9); NEUTROPHIL # 9.4 10^3/ul (1.6-7.5); NEUTROPHILS % 78.8 % (39.0-77.0); PLATELET COUNT 182 10^3/UL (140-415); RED CELL DISTRIBUTION WIDTH 18.3 % (11.5-14.5)
[2018-05-04 05:57] LABS: WHITE BLOOD COUNT 11.9 10^3/ul (4.8-10.8)
[2018-05-04 06:14] LABS: ANION GAP 17 (5-13); BLOOD UREA NITROGEN 87 mg/dl (7-20); CALCIUM 8.5 mg/dl (8.4-10.2); CARBON DIOXIDE 20 mmol/L (21-31); CHLORIDE 92 mmol/L (97-110); GLUCOSE 109 mg/dl (70-220); SODIUM 129 mmol/L (135-144)
[2018-05-04] MEDS: PANTOPRAZOLE 40 MG INJ IV (06:24)
[2018-05-04 06:43] LABS: CREATININE 16.76 mg/dl (0.61-1.24); Estimated GFR 4 mL/min (>60)
[2018-05-04] MEDS: NYSTATIN SUSP 5 ML CUP PO ×2 (08:48→13:00)
[2018-05-04] MEDS: HYDROCODONE/APAP (5/325) TAB PO (11:16)
[2018-05-04] MEDS: HEPARIN 1000 UNITS/ML 10 ML INJ CATHETER (11:39)
[2018-05-04] MEDS ORDERED: morphine LIQ (10 MG/5 ML) CUP PO (16:00)
== END 2018-05-04 16:50 | disposition home or self-care (01) | DRG 557 ==
LOC: 6WM 04-25 00:41 → ICU 04-21 09:27 → E/R 14:25 → PP2 19:30
PROC: 06HY33Z Insertion of Infusion Device into Lower Vein, Percutaneous Approach (ICD-10-PCS; principal; 2018-04-21)
PROC: 5A1D70Z Performance of Urinary Filtration, Intermittent, Less than 6 Hours Per Day (ICD-10-PCS; 2018-04-21)
PROC: 30233N1 Transfusion of Nonautologous Red Blood Cells into Peripheral Vein, Percutaneous Approach (ICD-10-PCS; 2018-04-23)
PROC: 0JH63XZ Insertion of Tunneled Vascular Access Device into Chest Subcutaneous Tissue and Fascia, Percutaneous Approach (ICD-10-PCS; 2018-04-28)
PROC: 02H633Z Insertion of Infusion Device into Right Atrium, Percutaneous Approach (ICD-10-PCS; 2018-04-28)
DX: M62.82 Rhabdomyolysis (principal); J96.01 Acute respiratory failure with hypoxia; A41.9 Sepsis, unspecified organism; J81.0 Acute pulmonary edema; R65.20 Severe sepsis without septic shock; N17.9 Acute kidney failure, unspecified; B20 Human immunodeficiency virus [HIV] disease; E87.2 Acidosis; D63.8 Anemia in other chronic diseases classified elsewhere; E87.70 Fluid overload, unspecified; F14.10 Cocaine abuse, uncomplicated; F17.200 Nicotine dependence, unspecified, uncomplicated; F32.9 Major depressive disorder, single episode, unspecified; L29.9 Pruritus, unspecified; T37.0X5A Adverse effect of sulfonamides, initial encounter
CPT/HCPCS: 36430; 36558; 36600; 71045; 74176; 76942; 80048; 80053; 80076; 80307; 81001; 82140; 82150; 82270; 82550; 82553; 82575; 82728; 82803; 83036; 83540; 83605; 83690; 83735; 83874; 84100; 84156; 84484; 85025; 85610; 85730; 86360; 86644; 86701; 86703; 86704; 86709; 86803; 86850; 86870; 86900; 86901; 86920; 87040; 87075; 87081; 87086; 87340; 87400; 87536; 90686; 90935; 93005; 94660; 96374; 96375; 96376; 97116; 97161; 97530; 99291-25

== ENCOUNTER 2018-08-17 08:43 | Emergency (ER) | payer OTHER | END 2018-08-17 09:30 | disposition home or self-care (01) | LOC: E/R 08:43 | DX: Z45.2 Encounter for adjustment and management of vascular access device (principal); Z00.00 Encounter for general adult medical examination without abnormal findings | CPT/HCPCS: 99282; Z7502 ==

== ENCOUNTER 2018-10-06 15:15 | Emergency (ER) | payer MEDICARE, OTHER | END 2018-10-06 16:04 | disposition home or self-care (01) | LOC: E/R 16:04 | DX: R21 Rash and other nonspecific skin eruption (principal); I10 Essential (primary) hypertension | CPT/HCPCS: 99282 ==